=== PATIENT | male | born 1945 | race Caucasian/White ===

== ENCOUNTER 2017-08-03 09:54 | Day surgery (SDC) | payer OTHER ==
[~2017-08-03] VITALS: Ht 177.8 cm; Wt 104.1 kg
[~2017-08-03 09:54] MED LIST: ATENOLOL50 MG PO; CALCIUM 600+D31 EACH PO; DEXILANT60 MG PO; ELIQUIS5 MG PO; LORAZEPAM0.5 MG PO; MELOXICAM15 MG PO; MULTIVITAMIN1 EAC2 PO; PREDNISONE5 MG PO; TRAMADOL HCL50 MG PO
[2017-08-03] MEDS ORDERED: ASPIRIN81 M2 PO (11:08)
[2017-08-03 16:02] VITALS: BP 121/66
[2017-08-03 16:09] VITALS: BP 121/66
[2017-08-03 20:16] VITALS: BP 136/61
[2017-08-03 23:11] VITALS: BP 151/72
[2017-08-04 03:31] VITALS: BP 143/76
[2017-08-04 05:37] LABS: BASOPHIL (%) 0.4 % (0-1); EOSINOPHIL (%) 4.2 % (0-5); EOSINOPHIL COUNT 0.3 K/uL (0-0.3); HEMATOCRIT 42.3 % (38.0-50.0); HEMOGLOBIN 14.3 G/DL (12.5-16.6); IMMATURE GRANULOCYTE (%) 0.4 % (0.0-0.7); LYMPHOCYTE (%) 26.5 % (15-42); MCH 29.9 PG (29.0-34.0); MCHC 33.8 G/DL (30.0-36.0); MCV 88.3 FL (86-99); MONOCYTE (%) 10.2 % (3-12); MONOCYTE COUNT 0.8 K/uL (0-0.8); NEUTROPHIL (%) 58.3 % (45-76); NEUTROPHIL COUNT 4.3 K/uL (1.8-6.4); PLATELET COUNT 212 K/uL (156-360); RBC DIS.WIDTH-CV 12.7 % (11.8-14.6); RBC DIS.WIDTH-SD 41.6 % (39-53); RED BLOOD COUNT 4.79 M/uL (4.00-5.50); WHITE BLOOD COUNT 7.4 K/uL (4.1-10.2)
[2017-08-04 06:03] LABS: CHLORIDE 105 MEQ/L (99-109); CREATININE 0.9 MG/DL (0.6-1.3); GFR ESTIMATE (CALCULATED) > 59 mL/min/ (58.99-99999); GLUCOSE 90 mg/dL (70-99); POTASSIUM 4.4 MEQ/L (3.7-5.4); SODIUM 138 MEQ/L (136-147); UREA NITROGEN (BUN) 16 mg/dL (9-23)
[2017-08-04 07:07] VITALS: BP 181/84
[2017-08-04] MEDS ORDERED: NITROSTAT0.4 MG SL (09:00)
[2017-08-04] MEDS ORDERED: CLOPIDOGREL75 MG PO (09:00)
[2017-08-04] MEDS ORDERED: AMLODIPINE BESYL5 MG PO (09:01)
== END 2017-08-04 10:35 | disposition home or self-care (01) ==
LOC: CATH 09:54 → ENRESERV 12:23 → 2SOUTH 13:51 → ENRESERV 14:04 → 4EAST 15:45
PROVIDERS: Internal Medicine Cardiovascular Disease
DX: I25.10 Atherosclerotic heart disease of native coronary artery without angina pectoris (principal); I48.0 Paroxysmal atrial fibrillation; I10 Essential (primary) hypertension; E66.9 Obesity, unspecified; Z68.31 Body mass index [BMI] 31.0-31.9, adult; M19.90 Unspecified osteoarthritis, unspecified site; Z87.891 Personal history of nicotine dependence; K21.9 Gastro-esophageal reflux disease without esophagitis; Z79.01 Long term (current) use of anticoagulants
CPT/HCPCS: 80048; 85025; 85347; 93005; C1725; C1769; C1874; C1887; G0378; J0153; J0461; J1644; J2250; J3010; J3246; J7030; J7512

== ENCOUNTER 2017-09-01 10:09 | Observation (INO) | payer OTHER ==
[~2017-09-01] VITALS: Ht 177.8 cm; Wt 95.9 kg
[~2017-09-01 10:09] MED LIST changes: +AMLODIPINE BESYL5 MG PO; +ASPIRIN81 M2 PO; +CLOPIDOGREL75 MG PO; +NITROSTAT0.4 MG SL
[2017-09-01 11:03] LABS: BASOPHIL (%) 0.7 % (0-1); BASOPHIL COUNT 0.1 K/uL (0-0.1); EOSINOPHIL (%) 4.5 % (0-5); EOSINOPHIL COUNT 0.3 K/uL (0-0.3); HEMATOCRIT 44.1 % (38.0-50.0); HEMOGLOBIN 15.6 G/DL (12.5-16.6); IMMATURE GRANULOCYTE (%) 0.3 % (0.0-0.7); LYMPHOCYTE (%) 24.2 % (15-42); LYMPHOCYTE COUNT 1.8 K/uL (1.0-2.8); MCH 30.8 PG (29.0-34.0); MCHC 35.4 G/DL (30.0-36.0); MONOCYTE (%) 9.9 % (3-12); MONOCYTE COUNT 0.7 K/uL (0-0.8); NEUTROPHIL (%) 60.4 % (45-76); NEUTROPHIL COUNT 4.4 K/uL (1.8-6.4); PLATELET COUNT 210 K/uL (156-360); RBC DIS.WIDTH-CV 12.2 % (11.8-14.6); RBC DIS.WIDTH-SD 38.9 % (39-53); RED BLOOD COUNT 5.07 M/uL (4.00-5.50); WHITE BLOOD COUNT 7.4 K/uL (4.1-10.2)
[2017-09-01 11:08] LABS: INTER. NORMALIZED RATIO 1.5
[2017-09-01 11:18] LABS: CHLORIDE 107 mEq/L (99-109); POTASSIUM 3.9 mEq/L (3.7-5.4); SODIUM 138 mEq/L (136-147)
[2017-09-01 11:19] LABS: GLUCOSE 150 mg/dL (70-99)
[2017-09-01 11:23] LABS: CREATININE 0.9 mg/dL (0.6-1.3); GFR ESTIMATE (CALCULATED) > 59 mL/min/ (58.99-99999)
[2017-09-01 11:24] LABS: UREA NITROGEN (BUN) 17 mg/dL (9-23)
[2017-09-01 11:25] LABS: TROP-I INTERPRETATION NEGATIVE; TROPONIN-I < 0.01 ng/mL (0.0-0.30)
[2017-09-01] MEDS ORDERED: ATORVASTATIN CA40 MG PO (13:59)
[2017-09-01] MEDS ORDERED: VITAMIN D31000 UNI2 PO (14:02)
[2017-09-01] MEDS ORDERED: FINASTERIDE5 MG PO (14:02)
[2017-09-01] MEDS ORDERED: ASCORBIC ACID500 M3 PO (14:07)
[2017-09-01] MEDS ORDERED: TENORMIN50 MG PO (14:08)
[2017-09-01] MEDS ORDERED: CO Q-10100 MG PO (14:18)
[2017-09-01 15:27] VITALS: BP 140/68
[2017-09-01 19:00] VITALS: BP 132/81
[2017-09-01 19:27] LABS: TROP-I INTERPRETATION NEGATIVE; TROPONIN-I < 0.01 ng/mL (0.0-0.30)
[2017-09-01 23:59] VITALS: BP 126/82
[2017-09-02 04:01] LABS: TROP-I INTERPRETATION NEGATIVE; TROPONIN-I < 0.01 ng/mL (0.0-0.30)
[2017-09-02 04:11] VITALS: BP 136/75
[2017-09-02 07:39] VITALS: BP 127/82
== END 2017-09-02 11:41 | disposition home or self-care (01) ==
LOC: EME 10:09 → EDOF 13:17 → ENRESERV 13:19 → EDOF 13:20 → ENRESERV 13:52 → 5WEST 15:04 → ENPENDDIS 09-02 → 5WEST 09-02 11:41
PROVIDERS: Emergency Medicine; Internal Medicine
DX: R07.9 Chest pain, unspecified (principal); I25.10 Atherosclerotic heart disease of native coronary artery without angina pectoris; Z95.5 Presence of coronary angioplasty implant and graft; F41.9 Anxiety disorder, unspecified; K21.9 Gastro-esophageal reflux disease without esophagitis; E78.5 Hyperlipidemia, unspecified; I48.0 Paroxysmal atrial fibrillation; I10 Essential (primary) hypertension; H91.90 Unspecified hearing loss, unspecified ear; Z79.01 Long term (current) use of anticoagulants; Z79.02 Long term (current) use of antithrombotics/antiplatelets; Z79.82 Long term (current) use of aspirin; Z79.52 Long term (current) use of systemic steroids; Z90.49 Acquired absence of other specified parts of digestive tract; Z96.642 Presence of left artificial hip joint; Z87.891 Personal history of nicotine dependence; Z88.5 Allergy status to narcotic agent
CPT/HCPCS: 71045; 80048; 84484; 85025; 85610; 85730; 93005; 99281; 99285; G0378; J7512